=== PATIENT | female | born 1970 | race African-American/Black ===

== ENCOUNTER 2016-10-01 14:58 | Emergency (ER) | payer MEDICAID ==
[~2016-10-01] VITALS: Ht 162.6 cm; Wt 55.8 kg
[2016-10-01] MEDS ORDERED: NKM (15:04)
[2016-10-01 15:08] VITALS: BP 109/58
[2016-10-01] MEDS ORDERED: Morphine Sulfate 4mg/ml Inj IVP ONE ×2 (15:30→19:30)
[2016-10-01 15:46] LABS: BASOPHILS % (AUTO) 1.2 % (0.0-2.0); EOSINOPHILS % (AUTO) 0.5 % (0.0-3.0); MEAN CORPUSCULAR HEMOGLOBIN 32.1 PG (27.0-31.0); MEAN CORPUSCULAR HGB CONC 34.7 G/DL (32.0-36.0); MEAN CORPUSCULAR VOLUME 92 FL (80-99); MEAN PLATELET VOLUME 7.2 FL (6.5-10.1); MONOCYTES % (AUTO) 5.4 % (1.0-10.0); NEUTROPHILS % (AUTO) 61.8 % (45.0-75.0); PLATELET COUNT 235 K/UL (150-450); RED BLOOD COUNT 4.12 M/UL (4.20-5.40); RED CELL DISTRIBUTION WIDTH 11.6 % (11.6-14.8); WHITE BLOOD COUNT 11.7 K/UL (4.8-10.8)
[2016-10-01 15:47] LABS: APPEARANCE,URINE SLIGHTLY CLOUDY; KETONES,URINE NEGATIVE (NEGATIVE); LEUKOCYTE ESTERASE ,URINE 1+ (NEGATIVE); NITRITE,URINE NEGATIVE (NEGATIVE); PH,URINE 8 (4.5-8.0); PROTEIN,URINE NEGATIVE (NEGATIVE); UROBILINOGEN,URINE 4 MG/DL (0.0-1.0)
[2016-10-01 16:14] LABS: RBC,URINE 0-2 /HPF (0 - 2); SQUAMOUS EPITHELIAL CELL,UR MANY /LPF (NONE/OCC)
[2016-10-01 16:15] LABS: BACTERIA,URINE MODERATE /HPF
[2016-10-01 17:02] VITALS: BP 104/56
[2016-10-01 17:25] LABS: ALANINE AMINOTRANSFERASE 9 U/L (3-33); ALBUMIN/GLOBULIN RATIO 1.3 (1.0-2.7); ANION GAP 16 (5-15); ASPARTATE AMINO TRANSFERASE 14 U/L (5-40); CALCIUM 7.4 mg/dL (8.6-10.2); CARBON DIOXIDE 22 mEQ/L (20-30); CHLORIDE 103 mEQ/L (98-107); CREATININE 0.6 mg/dL (0.5-0.9); GLOMERULAR FILTRATION RATE > 60 mL/min (>60); HEMOLYSIS 13; LIPASE 23 U/L (< 60); POTASSIUM 2.8 mEQ/L (3.4-4.9); SODIUM 141 mEQ/L (135-145); TOTAL PROTEIN 6.3 g/dL (6.6-8.7)
[2016-10-01] MEDS ORDERED: Ketorolac 30mg Inj IV ONE (18:15)
[2016-10-01] MEDS ORDERED: cefTRIAXone 1 GM in NS 55 ML IVPB ONE (18:30)
[2016-10-01 18:45] VITALS: BP 101/61
--- NOTE | 2016-10-01 19:27 | Emergency Room Report ---
History of Present Illness General Chief Complaint: Abdominal Pain Source: Patient Present Illness HPI 45-year-old female presents to ED for evaluation. Patient stated that she developed abdominal pain probably one hour prior to arrival. HEENT is localized to the right flank, radiating toward the right abdomen. 10 out of 10. Sharp. No other aggravating or relieving factors. Denies nausea or vomiting. Denies chest pain or shortness of breath. Denies dysuria or hematuria. Allergies: Coded Allergies: No Known Allergies (Unverified , 10/01/16) Patient History Past Medical History: none Past Surgical History: none, hysterectomy Pertinent Family History: none Social History: Denies: alcohol use, drug use, smoking Last Menstrual Period: total hysterectomy Now: No Immunizations: UTD Reviewed Nursing Documentation: PMH: Agreed, PSxH: Agreed Nursing Documentation-PMH Past Medical History: No History, Except For Review of Systems All Other Systems: negative except mentioned in HPI Physical Exam Vital Signs Date Time Temp Pulse Resp B/P Pulse Ox O2 Delivery O2 Flow Rate FiO2 10/01/16 14:58 98.8 68 16 111/78 99 Room Air Sp02 EP Interpretation: reviewed, normal General Appearance: no apparent distress, alert, GCS 15, non-toxic, mild distress Head: normocephalic Eyes: bilateral eye PERRL, bilateral eye normal inspection ENT: normal ENT inspection Neck: normal inspection Respiratory: lungs clear, normal breath sounds, speaking full sentences, other - reproducible R lower rib pain. Cardiovascular #1: regular rate, rhythm, no edema Gastrointestinal: normal bowel sounds, soft, non-distended, no guarding, no rebound Rectal: deferred Genitourinary: CVA tenderness (R) Musculoskeletal: normal inspection Neurologic: alert, oriented x3, responsive, motor strength/tone normal, sensory intact, speech normal Psychiatric: normal inspection Skin: normal inspection Lymphatic: normal inspection Medical Decision Making Diagnostic Impression: Primary Impression: Chest wall muscle strain Qualified Codes: S29.011A - Strain of muscle and tendon of front wall of thorax, initial encounter Additional Impression: UTI (urinary tract infection) Qualified Codes: N39.0 - Urinary tract infection, site not specified ER Course Hospital Course 45-year-old F presents to ED with R flank plasencia radiating to RUQ Differential diagnosis includes- kidney stone, pyelonephritis, cholecystitis, small bowel obstruction, gastritis, Clinical course Patient placed on stretcher. After initial history and physical I ordered labs , IV fluids, pain medications and CT scan Labs - noted leukocytosis, electrolytes ok, LFTs normal, UA grossly positive CT scan shows no acute pathology Upon reassessment, the pain appears more muscular in nature. Pain is actually over the lower ribs. No signs of pyelonephritis on CT. On reassessment pain is improved. I believe patient can be safely discharged to home I feel this is a highly complex case requiring extensive working including EKG/ Rhythm strip, Xray/CT/US, Blood/urine lab work, repeat exams while in ED, and administration of strong opiates/narcotics for pain control, admission to hospital or close patient follow up. Diagnosis - chest wall muscle strain, UTI Stable and discharged to home with Rx Keflex, Motrin, flexeril. Followup with PMD. Return to ED if symptoms recur or worsen Labs Test 10/01/16 15:16 10/01/16 15:25 10/01/16 15:30 White Blood Count 11.7 K/UL (4.8-10.8) Red Blood Count 4.12 M/UL (4.20-5.40) Hemoglobin 13.2 G/DL (12.0-16.0) Hematocrit 38.0 % (37.0-47.0) Mean Corpuscular Volume 92 FL (80-99) Mean Corpuscular Hemoglobin 32.1 PG (27.0-31.0) Mean Corpuscular Hemoglobin Concent 34.7 G/DL (32.0-36.0) Red Cell Distribution Width 11.6 % (11.6-14.8) Platelet Count 235 K/UL (150-450) Mean Platelet Volume 7.2 FL (6.5-10.1) Neutrophils (%) (Auto) 61.8 % (45.0-75.0) Lymphocytes (%) (Auto) 31.0 % (20.0-45.0) Monocytes (%) (Auto) 5.4 % (1.0-10.0) Eosinophils (%) (Auto) 0.5 % (0.0-3.0) Basophils (%) (Auto) 1.2 % (0.0-2.0) Urine Color Yellow Urine Appearance Slightly cloudy Urine pH 8 (4.5-8.0) Urine Specific [place] 1.010 (1.005-1.035) Urine Protein Negative (NEGATIVE) Urine Glucose (UA) Negative (NEGATIVE) Urine Ketones Negative (NEGATIVE) Urine Occult Blood Negative (NEGATIVE) Urine Nitrite Negative (NEGATIVE) Urine Bilirubin Negative (NEGATIVE) Urine Urobilinogen 4 MG/DL (0.0-1.0) Urine Leukocyte Esterase 1+ (NEGATIVE) Urine RBC 0-2 /HPF (0 - 2) Urine WBC 2-4 /HPF (0 - 2) Urine Squamous Epithelial Cells Many /LPF (NONE/OCC) Urine Bacteria Moderate /HPF (NONE) Urine HCG, Qualitative Negative Sodium Level 141 mEQ/L (135-145) Potassium Level 2.8 mEQ/L (3.4-4.9) Chloride Level 103 mEQ/L (98-107) Carbon Dioxide Level 22 mEQ/L (20-30) Anion Gap 16 (5-15) Blood Urea Nitrogen 11 mg/dL (7-23) Creatinine 0.6 mg/dL (0.5-0.9) Estimat Glomerular Filtration Rate > 60 mL/min (>60) Glucose Level 82 mg/dL (74-106) Calcium Level 7.4 mg/dL (8.6-10.2) Total Bilirubin 0.3 mg/dL (0.0-1.2) Aspartate Amino Transf (AST/SGOT) 14 U/L (5-40) Alanine Aminotransferase (ALT/SGPT) 9 U/L (3-33) Alkaline Phosphatase 54 U/L (35-104) Total Protein 6.3 g/dL (6.6-8.7) Albumin 3.6 g/dL (3.5-5.2) Globulin 2.7 g/dL Albumin/Globulin Ratio 1.3 (1.0-2.7) Lipase 23 U/L (< 60) CT/MRI/US Diagnostic Results CT/MRI/US Diagnostic Results : Imaging Test Ordered: CT A/P Impression no acute process Last Vital Signs Date Time Temp Pulse Resp B/P Pulse Ox O2 Delivery O2 Flow Rate FiO2 10/01/16 18:45 98.2 85 18 101/61 100 Room Air Status: improved Disposition: HOME, SELF-CARE Condition: Stable Scripts Cephalexin* (KEFLEX*) 500 Mg Capsule 500 MG ORAL Q6H, #28 CAP 0 Refills Prov: INA GAMA M.D. 10/01/16 Cyclobenzaprine Hcl* (FLEXERIL*) 10 Mg Tablet 10 MG ORAL TID Y for Muscle Spasm, #20 TAB Prov: INA GAMA M.D. 10/01/16 Ibuprofen* (MOTRIN*) 600 Mg Tablet 600 MG ORAL Q8H Y for For Pain, #30 TAB 0 Refills Prov: INA GAMA M.D. 10/01/16 Referrals: NOT [facility]/,REFERRING (PCP) INA GAMA M.D. Oct 01, 2016 19:27
[2016-10-01 19:28] VITALS: BP 100/56
[2016-10-01] MEDS ORDERED: KEFLEX500 MG ORAL (20:15)
[2016-10-01] MEDS ORDERED: CYCLOBENZAPRINE10 MG ORAL (20:15)
[2016-10-01] MEDS ORDERED: IBUPROFEN600 MG ORAL (20:15)
[2016-10-01 20:25] VITALS: BP 102/69
--- NOTE | 2016-10-02 10:23 | Diagnostic Imaging Report ---
Indications: Right-sided abdominal pain, history of hysterectomy Technique: Continuous helical CT imaging of the abdomen and pelvis was performed with automatic exposure control following administration of nonionic IV contrast only, on a Siemens sensation [address] scanner. Axial, coronal, sagittal images were reconstructed at 5 mm slice thickness. No oral contrast was administered per requesting physician's order, despite no contraindications listed in either submitted clinical data or tech note.. CTDI volume(s): 13 mGy Total DLP: 620 mGy-cm Findings: Comparison: None Lack of oral contrast limits evaluation of gastrointestinal tract, nondilated throughout. Appendix unremarkable. No obvious mural thickening, adjacent stranding, extraluminal gas or fluid collections identified, aside from minimal free fluid in the dependent portion of the pelvis. Liver contains a 1 cm circumscribed low-attenuation focus in segment 3, is otherwise unremarkable. Uterus absent. Neither ovary identified. Gallbladder, pancreas, spleen, adrenal glands, kidneys, unopacified ureters and urinary bladder, bilateral adnexal regions, vascular structures, retroperitoneum, mesentery, remainder visualized abdominopelvic anatomy unremarkable. Lung bases and adjacent pleural surfaces clear. No focal skeletal abnormalities are identified. IMPRESSION: Minimal pelvic free fluid, nonspecific, may be physiologic Unremarkable appendix--no evidence of acute appendicitis No other evidence of acute abdominopelvic disease, with limitation as described. Subtle but potentially significant abnormalities the gastrointestinal tract may be missed. Repeat CT scan with full oral and IV contrast preparation recommended for more complete evaluation, as clinically indicated Previous hysterectomy Hepatic cyst Written preliminary report placed in PACS 10/01/16 at 1811
== END 2016-10-01 20:25 | disposition home or self-care (01) ==
LOC: EDBD 14:58 → EMR 15:09
DX: S29.011A Strain of muscle and tendon of front wall of thorax, initial encounter (principal); X58.XXXA Exposure to other specified factors, initial encounter; Y92.9 Unspecified place or not applicable; N39.0 Urinary tract infection, site not specified; K76.89 Other specified diseases of liver; Z90.710 Acquired absence of both cervix and uterus
CPT/HCPCS: 36415; 74177; 80053; 81003; 81025; 83690; 85025; 87086; 96361; 96365; 96374; 96375; 99284; J0696; J1885; J2270; J2405; J7040; Q9967; J8499